=== PATIENT | male | born 1950 | race Asian ===

== ENCOUNTER → 2018-06-30 | Day surgery (SDC) | payer OTHER ==
[~2018-06-30] MED LIST: ACETAMINOPHEN325 M1 PO; ASPIR 8181 MG PO; BISACODYL5 MG PO; CEFAZOLIN SOD 1 GM VIAL ONE; DOCUSATE SODIU100 MG PO; FENTANYL CITRATE/PF 100MCG/2 ML INJ ONE; HUMALOG MI100 UNIT/4 SQ; LEVEMIR100 UNIT/1 SQ; METOPROLOL TART25 MG PO; MULTI-VITAMIN1 EACH PO; NAMENDA10 MG PO; OYSTER SHELL 51 EACH PO; PRAVASTATIN SOD40 MG PO; PROPOFOL IV EMULSION 10 MG/ML 50 ML VIAL ONE; VITAMIN B-121000 MCG PO; VITAMIN D1000 UNI1 PO; VOLTAREN100 GM TOP
[2018-06-30 12:03] LABS: BASOPHILS # (AUTO) 0.1 (0.0-0.1); BASOPHILS % 0.5 % (0.0-1.0); EOSINOPHILS # (AUTO) 0.3 (0.0-0.4); EOSINOPHILS % 3.4 % (0.0-6.0); HEMATOCRIT 38.5 % (38.2-49.6); HEMOGLOBIN 12.4 g/dL (14.0-18.0); LYMPHOCYTES # (AUTO) 1.8 (1.0-3.2); LYMPHOCYTES % 18.9 % (18.0-39.1); MEAN CORPUSCULAR HEMOGLOBIN 23.7 pg (28-32); MEAN CORPUSCULAR HGB CONC 32.2 g/dL (31-35); MEAN CORPUSCULAR VOLUME 73.6 fL (81-99); MONOCYTES # (AUTO) 0.7 (0.2-0.8); MONOCYTES % 6.9 % (4.4-11.3); NEUTROPHILS # (AUTO) 6.8 (2.1-6.9); PLATELET COUNT 310 x10e3/uL (140-360); RED BLOOD COUNT 5.23 x10e6/uL (4.3-5.7); RED CELL DISTRIBUTION WIDTH 14.9 % (11.7-14.4)
[2018-06-30 15:00] VITALS: BP 163/92
--- NOTE | 2018-06-30 20:57 | Operative Report ---
DATE OF PROCEDURE: 06/30/2018 SURGEON: Avtar Garcia MD PROCEDURE: EGD and PEG tube insertion. REFERRING PHYSICIAN: Dr. Marlena Barrios. INDICATION: Oropharyngeal dysphagia. MEDICATIONS: The patient was done under MAC, please see anesthesiologist's note. PROCEDURE IN DETAIL: With the patient in the left supine position, a flexible fiberoptic Olympus gastroscope was introduced into the esophagus under direct visualization without any difficulty. There were some prominent esophageal veins versus grade 1 esophageal varices. There was no active bleeding. The scope was then advanced with ease into the stomach. Mucosa overlying the antrum and the body revealed some patchy areas of erythema. The pylorus was intubated with ease and the scope was advanced all the way to the second portion of the duodenum. The scope was then withdrawn slowly. Mucosa overlying the proximal second portion and duodenal bulb appeared to be within normal limits. The scope was then withdrawn back into the stomach and retroflexed and mucosa overlying the fundus and cardia appeared to be within normal limits. After delineation of a safe entry point through external digital palpation and transabdominal illumination, PEG tube insertion was carried out in the usual fashion. The scope was subsequently withdrawn after documenting a good positioning of the intragastric bumper. The patient tolerated the procedure well. IMPRESSION: 1. Prominent esophageal veins versus grade 1 esophageal varices. There is no active bleeding or stigmata of recent hemorrhage. 2. Gastritis. 3. PEG tube insertion carried out in the usual fashion. The patient tolerated the procedure well. G-tube to drain to gravity x24 hours then can use. Keep abdominal binder on for at least two weeks. Avtar Garcia MD [facility] [place] /[id number] cc: Dr. Marlena Barrios.
== END | disposition home or self-care (01) ==
LOC: OR 11:00
PROVIDERS: ATTEND Internal Medicine Gastroenterology
DX: R13.10 Dysphagia, unspecified (principal); K29.70 Gastritis, unspecified, without bleeding; I10 Essential (primary) hypertension; E11.9 Type 2 diabetes mellitus without complications; R15.9 Full incontinence of feces; R32 Unspecified urinary incontinence; F03.90 Unspecified dementia, unspecified severity, without behavioral disturbance, psychotic disturbance, mood disturbance, and anxiety; I69.398 Other sequelae of cerebral infarction; E78.5 Hyperlipidemia, unspecified; I25.2 Old myocardial infarction; Z79.82 Long term (current) use of aspirin; Z79.4 Long term (current) use of insulin
CPT/HCPCS: 36415; 43246; 82948; 85025; 93005; J0690; J2704